=== PATIENT | male | born 1995 | race Caucasian/White ===

== ENCOUNTER → 2023-02-23 | Outpatient (CLI) | payer BC ==
--- NOTE | 2023-02-23 13:32 | XR ---
EXAMINATION TYPE: XR wrist complete RT DATE OF EXAM: 02/23/2023 COMPARISON: NONE HISTORY: 27-year-old male M25.531, radiocarpal pain. TECHNIQUE: 4 views FINDINGS: The radiocarpal and distal radioulnar joint as well as the midcarpal compartment appear intact. No ac marin fracture, subluxation, or dislocation. IMPRESSION: No acute osseous abnormality seen.
== END | disposition home or self-care (01) ==
LOC: RADXRMAIN 12:13
PROVIDERS: ATTEND Family Medicine
DX: M25.531 Pain in right wrist (principal)

== ENCOUNTER 2023-03-20 17:48 | Emergency (ER) | payer BC ==
--- NOTE | 2023-03-20 18:51 | ED ---
General Adult HPI - General Source: RN notes reviewed <Ethel Mckeon - Last Filed: 03/20/23 18:50> <Coby Ludwig - Last Filed: 03/20/23 21:04> - General Stated complaint: L finger laceration Time Seen by Provider: 03/20/23 18:50 - History of Present Illness Initial comments: Patient is a 28-year-old male who presents to the emergency department for laceration. (Ethel Mckeon) 28-year-old male presenting with chief complaint of laceration to left pointer finger. Patient was trying to retrieve something from underneath the seat of his car when he lacerated his finger on metal. His last tetanus shot was back in February. He has a small flap to the distal end of the finger. Bleeding is well- controlled at this time. (Coby Ludwig) - Related Data Allergies Allergy/AdvReac Type Severity Reaction Status Date / Time No Known Allergies Allergy Verified 03/20/23 19:18 Review of Systems ROS Other: All systems not noted in ROS Statement are negative. <Ethel Mckeon - Last Filed: 03/20/23 18:50> ROS Other: All systems not noted in ROS Statement are negative. <Coby Ludwig - Last Filed: 03/20/23 21:04> ROS Statement: Those systems with pertinent positive or pertinent negative responses have been documented in the HPI. General Exam <LindaEthel - Last Filed: 03/20/23 18:50> Limitations: no limitations General appearance: alert, in no apparent distress Head exam: Present: atraumatic, normocephalic, normal inspection Eye exam: Present: normal appearance, EOMI. Absent: scleral icterus, periorbital swelling Neck exam: Present: normal inspection, full ROM Neurological exam: Present: alert, oriented X3, CN II-XII intact Psychiatric exam: Present: normal affect, normal mood Expanded Type of lesion: Present: laceration (left index finger 4 cm flap) <Coby Ludwig - Last Filed: 03/20/23 21:04> - General Exam Comments Initial Comments: Visual Physical Exam Vital signs reviewed General: Well-appearing, nontoxic, no acute distress. Head: Normocephalic, atraumatic Eyes: PERRLA, EOMI ENT: Airway patent Chest: Nonlabored breathing Skin: No visual rash, normal skin tone Neuro: Alert and oriented 3 Musculoskeletal: No gross abnormalities (Ethel Mckeon) Course Vital Signs 03/20/23 03/20/23 19:15 20:50 Temperature 98.3 F 98.1 F Pulse Rate 94 86 Respiratory 18 16 Rate Blood Pressure 182/93 176/86 O2 Sat by Pulse 99 99 Oximetry Procedures - Laceration Laceration #1 Consent Obtained: verbal consent Indication: laceration Site: hand Size (cm): 4 Description: flap Depth: simple, single layer Anesthetic Used: lidocaine 1%, without epi Anesthesia Technique: local infiltration Pre-repair: wound explored, irrigated extensively Type of Sutures: nylon Size of Sutures: 4-0 Number of Sutures: 6 Technique: simple, interrupted Patient Tolerated Procedure: well <Coby Ludwig - Last Filed: 03/20/23 21:04> Medical Decision Making <Coby Ludwig - Last Filed: 03/20/23 21:04> - Medical Decision Making Was pt. sent in by a medical professional or institution (, PA, DECALER, urgent care, hospital, or residential...) When possible be specific @ -No Did you speak to anyone other than the patient for history (EMS, parent, family, police, friend...)? What history was obtained from this source @ -No Did you review nursing and triage notes (agree or disagree)? Why? @ -I reviewed and agree with nursing and triage notes Were old charts reviewed (outside hosp., previous admission, EMS record, old EKG, old radiological studies, urgent care reports/EKG's, residential records)? Report findings @ -No old charts were reviewed Differential Diagnosis (chest pain, altered mental status, abdominal pain women, abdominal pain men, vaginal bleeding, weakness, fever, dyspnea, syncope, headach e, dizziness, GI bleed, back pain, seizure, CVA, palpatations, mental health, musculoskeletal)? @ -not applicable EKG interpreted by me (3pts min.). @ -As above X-rays interpreted by me (1pt min.). @ -None done CT interpreted by me (1pt min.). @ -None done U/S interpreted by me (1pt. min.). @ -None done What testing was considered but not performed or refused? (CT, X-rays, U/S, labs)? Why? @ -None What meds were considered but not given or refused? Why? @ -None Did you discuss the management of the patient with other professionals (professionals i.e. , PA, DECALER, lab, RT, psych nurse, social sciences department chair, divorce lawyer, teacher, animal control officer, counter caser)? Give summary @ -No Was smoking cessation discussed for >3mins.? @ -No Was critical care preformed (if so, how long)? @ -No Were there social determinants of health that impacted care today? How? (Homelessness, low income, unemployed, alcoholism, drug addiction, transportation, low edu. Level, literacy, decrease access to med. care, detention, rehab)? @ -No Was there de-escalation of care discussed even if they declined (Discuss DNR or withdrawal of care, Hospice)? DNR status @ -No What co-morbidities impacted this encounter? (DM, HTN, Smoking, COPD, CAD, Cancer, CVA, ARF, Chemo, Hep., AIDS, mental health diagnosis, sleep apnea, morbid obesity)? @ -None Was patient admitted / discharged? Hospital course, mention meds given and route, prescriptions, significant lab abnormalities, going to OR and other pertinent info. @ -28-year-old male presenting with chief complaint of laceration to left index finger. His tetanus is up-to-date. Wound was repaired, see procedure note for details. Educated on wound care and signs of infection. Follow-up with PCP. Report back to ER with any new or worsening symptoms. Discussed return parameters and answered all questions. Patient conveyed verbal understanding an d agreed to the plan. I discussed this case in detail with my attending Dr. Willis Undiagnosed new problem with uncertain prognosis? @ -No Drug Therapy requiring intensive monitoring for toxicity (Heparin, Nitro, Insulin, Cardizem)? @ -No Were any procedures done? @ -Laceration repair Diagnosis/symptom? @ -Laceration Acute, or Chronic, or Acute on Chronic? @ -acute Uncomplicated (without systemic symptoms) or Complicated (systemic symptoms)? @ -uncomplicated Side effects of treatment? @ -No Exacerbation, Progression, or Severe Exacerbation? @ -No Poses a threat to life or bodily function? How? (Chest pain, [place], [place], pneumonia, PE, COPD, DKA, ARF, appy, cholecystitis, CVA, Diverticulitis, Homicidal, Suicidal, threat to staff... and all critical care pts) @ -No (Coby Ludwig) Disposition <Ethel Mckeon - Last Filed: 03/20/23 18:50> Is patient prescribed a controlled substance at d/c from ED?: No Time of Disposition: 20:43 <Coby Ludwig - Last Filed: 03/20/23 21:04> Clinical Impression: Laceration Disposition: HOME SELF-CARE Condition: Good Instructions (If sedation given, give patient instructions): Care For Your Stitches (ED), Finger Laceration (ED) Additional Instructions: Follow-up with PCP. Report back to ER with any new or worsening symptoms. Keep the wound clean, dry, and covered. Wash with soap and water daily. Monitor for signs of infection, including but not limited to redness, swelling, warmth, tenderness, discharge. Sutures may be removed in 10-14 days. Referrals: Bob Ceballos MD [Primary Care Provider] - 1-2 days
[2023-03-20] MEDS ORDERED: ALBUTEROL HFA INHALER INHALATION STA (19:33)
[2023-03-20] MEDS ORDERED: methylPREDNISolone SOD SUCCI 125 MG/2 ML VIAL IM ONE (19:33)
[2023-03-20] MEDS ORDERED: LIDOCAINE 1% INJ 10MG/ML (30 ML VIAL-PF) SQ ONE (19:34)
[2023-03-20 20:52] VITALS: BP 176/86; PULSE 86; RESP 16; TEMP 98.1
== END 2023-03-20 21:18 | disposition home or self-care (01) ==
LOC: EC 17:48
DX: S61.311A Laceration without foreign body of left index finger with damage to nail, initial encounter (principal); W26.8XXA Contact with other sharp object(s), not elsewhere classified, initial encounter
CPT/HCPCS: 99282; 12002; J2001